=== PATIENT | female | born 1940 | race Caucasian/White ===

== ENCOUNTER 2017-01-03 16:24 | Emergency (ER) | payer MEDICARE ==
[~2017-01-03 16:24] MED LIST: ALLO100T PO; AMIT25TA PO; CALC-98 PO; CARV25TA PO; COLC0.6T34 PO; HYDR-971 PO; INSU100C SQ; LISI1TAB5 PO; MULT-245 PO; NPH,100V4 SQ; ONDA4TAB10 SL; PRED20TA PO; PRED50TA PO; SERT50TA PO; WARF3TAB7 PO
[2017-01-03 17:22] VITALS: BP 164/78
[2017-01-03] MEDS ORDERED: HYDROCODONE/APAP 5/325MG TABLET. PO ONE (18:30)
[2017-01-03] MEDS ORDERED: PREDNISONE 20 MG TABLET PO ONE (18:30)
[2017-01-03] MEDS ORDERED: HYDR-971 PO (18:42)
[2017-01-03] MEDS ORDERED: PRED20TA PO (18:42)
--- NOTE | 2017-01-03 18:43 | PHYS DOC ---
Past Medical History Past Medical History: A-Fib, Diabetes-Type II, High Cholesterol, Hypertension, Other Additional Past Medical Histor: GOUT, CELLULITIS, DIABETIC RETINOPATHY Past Surgical History: No Surgical History Alcohol Use: None Drug Use: None Adult General Chief Complaint Chief Complaint: left ankle pain HPI HPI Patient is a 76 year old female complaining of acute onset of left ankle pain and swelling yesterday. She's had this before and she believes it is a gout attack. She does take allopurinol 200 mg daily to prevent gout and she has been taking it as directed. She doesn't know why she's had several of these gout attacks in the last few months. It usually is located somewhere on the foot. This seems just like a usual attack to her. The last time she had it like this, she was seen here and was prescribed hydrocodone, prednisone, and colchicine, which did work. Another time, she was told that her kidney function might be a problem and was not given colchicine. The patient does take warfarin daily. She had a GI bleed 3 weeks ago and had endoscopy and was found to have 3 polyps, one was bleeding, all [address] Browne at , she has an appointment to see her Wednesday for a follow- up from the GI bleed. Review of Systems Review of Systems Constitutional: Denies fever or chills [] Eyes: Denies change in visual acuity, redness, or eye pain [] HENT: Denies nasal congestion or sore throat [] Respiratory: Denies cough or shortness of breath [] Cardiovascular: Denies chest pain GI: Denies abdominal pain, nausea, vomiting, bloody stools or diarrhea [] : Denies dysuria or hematuria [] Musculoskeletal: As in history of present illness Integument: Denies rash or skin lesions [] Neurologic: Denies headache, focal weakness or sensory changes [] Allergies Allergies Allergies Coded Allergies Type Severity Reaction Last Updated Verified No Known Drug Allergies 07/29/16 No Physical Exam Physical Exam Constitutional: Well developed, well nourished, no acute distress, non-toxic appearance. Alert, mentating normally. HENT: Normocephalic, atraumatic, bilateral external ears normal, nose normal. [ ] Eyes: conjunctiva normal, no discharge. [] Neck: Normal range of motion, no stridor. [] Skin: Warm, dry, no erythema, no rash. [] Extremities: Left ankle has swelling, redness, tenderness, and warmth of the joint, mostly swollen on the lateral aspect. Left foot is unremarkable without swelling or redness. Neurovascular intact. Neurologic: Alert and oriented X 3, normal motor function, normal sensory function, no focal deficits noted. [] Current Patient Data Vital Signs Vital Signs Date Time Temp Pulse Resp B/P Pulse Ox O2 Delivery O2 Flow Rate FiO2 01/03/17 17:22 97.8 82 20 97 Room Air 97.8 EKG EKG [] Radiology/Procedures Radiology/Procedures [] Course & Med Decision Making Course & Med Decision Making Pertinent Labs and Imaging studies reviewed. (See chart for details) The patient does have a history and clinical examination consistent with a gout attack. She has had several attacks lately despite being on allopurinol 200 mg daily. I advised her to check with her doctor and see whether an increased dose of allopurinol would be advised. We also discussed the possibility of tapping her ankle to see whether this is in fact gout. I think that tablet would be a good idea because the patient is on warfarin and I'd rather let an orthopedic or plowing gardens do an ankle tap on her and she feels the same way. I advised her to call her doctor tomorrow to see if she can be set up to see somebody who could tap her ankle. [] Dragon Disclaimer Dragon Disclaimer This electronic medical record was generated, in whole or in part, using a voice recognition dictation system. Departure Departure Impression: Primary Impression: Ankle pain, left Additional Impression: Gout Disposition: 01 HOME, SELF-CARE Condition: STABLE Referrals: SHUKRI BROWNE MD (PCP) Patient Instructions: Gout, [id number] Additional Instructions: As we discussed, it's possible that your recurrent attacks are not really gout. To find out, someone needs to take some fluid off of that joint and send it for lab analysis. Because you are on warfarin, probably the best person would be orthopedic or rheumatology. Call your doctor tomorrow morning and see if somebody can see you to take some fluid off of this joint for analysis. Or you could set up to have this done next time you have an attack. Another option could be that you need an increased dose of allopurinol. Discussed this with your doctor. For this attack, I have prescribed hydrocodone for pain and prednisone for inflammation. Hydrocodone is an opiate, take sparingly, not while driving. It will cause constipation. See your doctor as planned on Wednesday, return or see her sooner if worse. Scripts Prednisone 20 Mg [id number] Mg PO DAILY #5 TAB One daily for 5 days for gout Prov:DINA ORTEGA MD 01/03/17 Hydrocodone/Apap 5-325 ([place] 5-325 Tablet)1 Each Tablet1 Tab PO PRN Q6HRS PRN PAIN #20 TAB Ref 0 As needed for gout pain Prov:DINA ORTEGA MD 01/03/17 Problem Qualifiers DINA ORTEGA MD Jan 03, 2017 18:42
== END 2017-01-03 19:02 | disposition home or self-care (01) ==
LOC: ER 16:24
DX: M25.572 Pain in left ankle and joints of left foot (principal); M10.9 Gout, unspecified; E78.00 Pure hypercholesterolemia, unspecified; I10 Essential (primary) hypertension; E11.319 Type 2 diabetes mellitus with unspecified diabetic retinopathy without macular edema
CPT/HCPCS: 99283; J7512